=== PATIENT | male | born 1955 | race Caucasian/White ===

== ENCOUNTER 2024-02-19 07:10 | Inpatient (IN) | payer MEDICARE, OTHER, SELFPAY ==
[2024-01-22 14:11] VITALS: BMI 29.7
[2024-01-22 15:00] LABS: Hematocrit 39.1 % (39.0-52.0); Hemoglobin 13.1 g/dL (13.0-18.0); Mean Corp Hgb Conc. 33.5 g/dL (33.0-37.0); Mean Corpuscular Hgb 31.2 pg (27.0-31.0); Mean Corpuscular Volume 93.1 fL (80.0-94.0); Mean Platelet Volume 10.6 fL (7.4-10.4); Platelet Count 266 10^3/uL (130-400); Red Cell Dist. Width 13.3 % (11.5-14.5); White Blood Cell Count 4.9 10^3/uL (4.8-10.8)
[2024-01-22 15:18] LABS: ALT (SGPT) 28 U/L (0-50); AST (SGOT) 32 U/L (17-59); Albumin 4.2 g/dl (3.5-5.0); Alkaline Phosphatase 44 U/L (38-126); Blood Urea Nitrogen 20 mg/dl (9-20); Calcium 9.5 mg/dl (8.4-10.2); Carbon Dioxide 29 mmol/L (22-30); Chloride 104 mmol/L (98-107); Estimated Creatinine Clearance 76 ml/min; Glucose 104 mg/dl (70-99); Potassium 4.8 mmol/L (3.5-5.1); Sodium 143 mmol/L (135-145); Total Bilirubin 0.4 mg/dl (0.2-1.3); Total Protein 6.5 g/dl (6.3-8.2); eGFR > 60.00
[2024-01-23 09:13] LABS: Glycohemoglobin (HgbA1c) 5.5 % (4.0-5.6)
[2024-02-13 10:44] VITALS: BMI 29.7
[2024-02-19] VITALS (14 sets, daily range): BP systolic 100–128; BP diastolic 67–86; BMI 29.7
[2024-02-19] MEDS: CELEBREX 200 MG PO (07:20)
[2024-02-19] MEDS: TYLENOL 650 MG PO ×4 (07:20→20:06)
[2024-02-19] MEDS: DILAUDID 0.5 MG IV ×4 (11:29→12:19)
[2024-02-19] MEDS: ROXICODONE 5 MG PO (11:47)
--- NOTE | 2024-02-19 12:07 | SUR.PHASEI ---
Dr Goss informed of severe pain despite treatment. Benny johnson RN BSN.
--- NOTE | 2024-02-19 12:16 | SUR.PHASEI ---
Patient continues to have'severe' pain, apnea and desaturations. Dr flores informed via TT. Benny Saucedo RN BSN.
--- NOTE | 2024-02-19 13:00 | TRANSFER ---
pt arrives from PACU. AAOX3, respondeds and interacts to verbal stimuli however drowsy in nature s/p OR. vitals stable. IVF infusing into right hand without issue. pt remains on 2L NC, placed on continuous pulse ox per order. care plan
continues to be followed.
[2024-02-19] MEDS: TYLENOL PO (13:16)
[2024-02-19] MEDS: NORMOSOL-R/PLASMALYTE-A 1000 IV (13:20)
--- NOTE | 2024-02-19 14:04 | W.PN.ORTHO ---
Today's Communication / Plan
-
D/c when clinically stable.
Assessment
.
Distal Motor Intact: Yes
Dressing:
Clean, dry and intact.
Assessment:
L knee OA s/p L TKA w/ Dr James 02/19/24
- s/p R TKA, 2015, by Dr. Kumari
DVT prophylaxis - ASA, b/l venous foot pumps
GERD - add Pepcid HS
Hypercholesterolemia
Colon polyps
Diverticulosis
Remote nephrolithiasis
Lumbar DDD w/ neuropathy s/p L4-L5 hemilaminectomy, 2017, and spinal stimulator, 05/2023
HSV
Plan
.
Surgery / Date: L TKA w/ Dr James 02/19/24
DVT Prophylaxis: Aspirin
Activity:
Out of bed.
PT/OT
Discharge Plan: Home w/ Outpatient PT
Subjective
.
.:
Patient resting comfortably in bed.
Groggy from anesthesia but arousable to verbal stimuli.
L knee pain currently well tolerated.
Denies any new significant complaints.
Vital Signs and Labs
.
Vital Signs and Labs:
Lab Results
01/22/24 13:41
01/22/24 13:41
Temp Pulse Resp BP Pulse Ox
98.3 F 76 16 128/86 98
02/19/24 07:12 02/19/24 07:12 02/19/24 07:12 02/19/24 07:12 02/19/24 07:12
Physical Exam
-
HEENT: No pallor, cyanosis, or jaundice. Throat clear.
NECK: Supple. No JVD.
RESPIRATORY: Lungs clear to auscultation.
CVS: S1, S2 normal. RRR.�
ABDOMEN: Soft, non-tender. No distension.
EXTREMITIES: Strength equal, no calf pain with palpation/dorsiflexion. Calves soft.
RAILROAD CAR REPAIR SUPERVISOR: AOx3. No focal deficits. event promoter grossly intact
[2024-02-19] MEDS: ZOFRAN 4 MG IV (15:13)
--- NOTE | 2024-02-19 16:42 | OR.RPT ---
Operative Report
Operative Report
Orthopaedic Surgery Operative Note
DATE OF OPERATION: 02/19/2024
PREOPERATIVE DIAGNOSES: Osteoarthritis, left knee.
POSTOPERATIVE DIAGNOSES: Osteoarthritis, left knee.
OPERATION PERFORMED:
1) Left total knee arthroplasty (CPT 68092)
2) Intraosseous administration of analgesic (CPT 31963)
SURGEON: Pro James MD
ASSISTANTS: Tye Merritt PA-C who helped with patient and limb positioning and retraction
ANESTHESIA: Spinal by anesthesia plus intraoperative infusion of morphine into the tibial metaphysis by Dr. James
COMPLICATIONS: None.
ESTIMATED BLOOD LOSS: 20mL
DRAINS: None
TOURNIQUET TIME: 53 minutes.
IMPLANTS:
- Andrade Persona CR Femur, size 10
- Andrade Persona tibia base plate, size F
- Andrade Persona ultracongruent articular surface, 10 mm
- All-polyethylene patellar component, size 32
- DJO Kunkle bone cement
INDICATIONS: The patient presented to my office with debilitating left knee pain due to osteoarthritis. We reviewed the natural history of this problem, as well as the risks, benefits, and alternatives of various treatment options. The patient
exhausted all nonoperative treatment options and wished to proceed with knee replacement surgery. The patient understood the risks which included, but were not limited to, bleeding, infection, failure to relieve pain, more pain than preop, damage to
blood vessels and nerves, need for reoperation, mechanical failure of the implants, wound healing problems, stiffness, instability, blood clot, pulmonary embolism, myocardial infarction, pneumonia, arrhythmia, CVA, and . The patient accepted
these risks and wished to proceed. All questions were answered, and informed consent was obtained.
PROCEDURE IN DETAIL: The patient was identified in the preoperative holding area. The left knee was identified as the operative site. The patient was taken in the operating room and placed in a supine position on the operating table. Spinal
anesthesia was performed. IV antibiotics and tranexamic acid were administered. An SCD was placed on the right lower extremity. A well-padded tourniquet was placed on the proximal thigh. All bony prominences were well padded. The left lower
extremity was prepped and draped in the usual sterile fashion.
We performed a surgical time-out. An interarticular block was performed with local anesthetic with epinephrine. The limb was exsanguinated with an Esmarch bandage, then the tourniquet was inflated to 250 mmHg. I performed interosseous administration
of morphine-saline solution via a Jamshidi style intraosseous needle into the proximal medial tibial metaphysis as described by Benny Ann MD. This was performed to aid in pain control. A midline skin incision was made followed by a medial
parapatellar arthrotomy. A subperiosteal peel was performed on the medial tibia. I excised part of the infrapatellar fat pad to improve our visualization as well as tissue over anterior femur. The patella was everted and the knee was flexed. I
excised the remnants of the anterior and posterior cruciate ligaments as well as tibial and femoral osteophytes with rongeurs.
The knee was flexed, and the extramedullary tibial cutting guide was aligned. Worth was aligned at neutral, rotation was centered on the tibial tubercle, and coronal alignment was aligned with the mechanical axis of the tibia and center of the ankle
joint. The cut height was 10mm off the lateral tibia joint surface. The guide was secured into place. The MCL and LCL were protected. The tibia surface was cut. The cut surface was inspected after removal to ensure appropriate height and slope based
on the preoperative plan. The cut was checked with a drop eric. It was centered nicely at the ankle.
A drill was used to open the femoral canal. The intramedullary distal femoral cutting guide was inserted into the femur. This was set at 5 degrees +0. This was secured into place with three pins. The cut level was checked with an loly wing. The
distal femur was cut through the cutting guide. The IM guide was reinserted to double check that the level of resection was flush and in appropriate alignment.
Felix's line and the transepicondylar axis were marked on the femur. The femoral sizing guide was applied to the anterior femur. Pins were inserted, and the 4-in-1 cutting guide was applied and secured into place. The rotation was compared to
[place]'s line, the transepicondylar axis, and the neutral tibia cut and was found to be appropriate. The width was checked and found to be appropriate and lateralized on the femur. The anterior, posterior, and chamfur cuts were made. A lamina
lookback coordinator was used to open the flexion gap, and posterior osteophytes were removed with a curved osteotome. The remnant medial and lateral meniscus were also removed. I prophylactically cauterized the lateral geniculate arteries. A 10mm spacer block
was applied. The knee was balanced in flexion and was tight laterally in extension. The ITB was piecrusted, and the spacer block was reapplied. The knee was noted to be balanced medially and laterally in flexion and extension.
The tibia was exposed and sized. Rotation was set in line with the tibial tubercle and congruent with the femur. The trial was secured into place with two pins. The trial femur was impacted into place, and a trial articular surface was placed. The
knee was taken through range of motion and noted to be stable throughout the arc of motion without gaping or excess tension. In extension, a measured resection of the patella was performed. The patella was sized, and lug holes were drilled. A trial
patella component was applied, and it was noted to track centrally throughout the arc of motion without need for further releases.
The trials were removed. The tibia keel was prepared with the punch and the drill. The bone surfaces were irrigated with sterile saline and dried. The cement was mixed in a vacuum mixer. Cement gun was used to apply cement to the tibial surface and
the undersurface of the tibial implant. Cement was pressurized into the tibial canal and tibia surface. The tibial component was impacted into place. Excess cement was removed. Cement was applied to the femoral surface and the femoral component. The
femoral component was impacted into place, and excess cement removed. A trial articular surface was inserted, and the knee was extended while the cement polymerized. The tourniquet was let down, and meticulous hemostasis was achieved. Dilute
betadine was poured into the wound and allowed to soak for 3 minutes. The knee was irrigated with copious normal saline.
Once the cement was polymerized, the trial articular surface was removed. Any excess cement was removed. The knee was trialed, and the final articular surface was selected and inserted into the tibial locking mechanism. The knee was reduced. A fresh
drape was applied to the surgical field.
The arthrotomy was closed with 0-PDS. Once closed, an interarticular block was performed with local anesthetic with epi. The deep dermal layer was closed with 2-0 PDS, and the subcuticular skin was closed with 3-0 monocryl. A Dermabond Prineo
dressing was applied to the skin in full flexion. Once this was completely dry, a sterile waterproof dressing was applied.
The anesthesia team performed an adductor canal block in the OR. The patient awoke from anesthesia without any difficulties. The sponge and instrument counts were correct x2 at the end of the case.
Danny James MD
[2024-02-19] MEDS: ANCEF 5 IV (16:47)
[2024-02-19] MEDS: COMPAZINE 5 MG PO (17:00)
[2024-02-19] MEDS: ASPIRIN PO (17:03)
[2024-02-19] MEDS: DECADRON 4 MG PO (20:06)
[2024-02-19] MEDS: BACTROBAN 2% OINTMENT 1 APPLIC NASAL (20:06)
[2024-02-19] MEDS: COLACE PO (20:07)
[2024-02-19] MEDS: SENOKOT PO (20:07)
[2024-02-19] MEDS: ZYRTEC 10 MG PO (21:14)
[2024-02-19] MEDS: PEPCID 20 MG PO (21:14)
--- NOTE | 2024-02-19 22:21 | PTCARENOTE ---
2144: pt sat on side of bed prior to attempting to stand up, became nauseous and vomited small amount of clear liquid. pt stated he felt better after that and refused anti emetics. Pt was not able to ambulate d/t numbness to surgical extremity. Care
ongoing.
[2024-02-20] MEDS: ANCEF 5 IV (00:05)
[2024-02-20] MEDS: TYLENOL 650 MG PO ×3 (00:05→07:49)
[2024-02-20 03:45] VITALS: BP 103/63
--- NOTE | 2024-02-20 05:05 | W.PN.UPDATE ---
Update Note
Progress Note Update
patient c/o left calf soreness. peripheral venous US of LLE ordered. No redness noted.
--- NOTE | 2024-02-20 05:28 | PTCARENOTE ---
0445: pt c/o of left calf 'soreness to the touch'. + DP and popliteal pulse, no redness or swelling noted. TT EDITING CLERK, who ordered U/S of LLE to r/o DVT. Care ongoing.
[2024-02-20] MEDS: COLACE 100 MG PO (07:48)
[2024-02-20] MEDS: CELEBREX 200 MG PO (07:48)
[2024-02-20] MEDS: DECADRON 4 MG PO (07:49)
[2024-02-20] MEDS: ASPIRIN 325 MG PO (07:49)
[2024-02-20] MEDS: SENOKOT 17.2 MG PO (07:49)
[2024-02-20] MEDS: BACTROBAN 2% OINTMENT 1 APPLIC NASAL (07:49)
[2024-02-20 08:45] VITALS: BP 108/69
[2024-02-20] MEDS: LIORESAL 5 MG PO (09:23)
[2024-02-20 09:50] VITALS: PULSE 78; O2SAT 97
--- NOTE | 2024-02-20 10:26 | W.PN.ORTHO ---
Today's Communication / Plan
-
Await OT recs. Pt did well w/ PT today.
D/c later today if remaining clinically stable.
Assessment
.
Distal Motor Intact: Yes
Dressing:
Clean, dry and intact.
Assessment:
L knee OA s/p L TKA w/ Dr James 02/19/24
- s/p R TKA, 2016, by Dr. Kumari
DVT prophylaxis - ASA, b/l venous foot pumps
L calf soreness - LLE U/S neg for DVT - given this, likely muscle related
- Will order Baclofen prn
- Of note, his spinal stimulator has been turned off since yesterday. Pt forgot to bring in his remote to turn back on. He will have his bring in prior to d/c today. Turning his stimulator back on may help for the pain he is describing.
PONV, improved w/ anti-emetics prn - has Zofran Rx upon d/c
GERD - added Pepcid HS
Hypercholesterolemia
Colon polyps
Diverticulosis
Remote nephrolithiasis
Lumbar DDD w/ neuropathy s/p L4-L5 hemilaminectomy, 2016, and spinal stimulator, 05/2023
HSV
Plan
.
Surgery / Date: L TKA w/ Dr James 02/19/24
DVT Prophylaxis: Aspirin
Activity:
Out of bed.
PT/OT
Discharge Plan: Home w/ Outpatient PT
Subjective
.
.:
Patient examined resting in his chair.
L calf pain overnight w/ soreness to the touch.
N/V yesterday improved by POD 1.
Eager for potential d/c today.
Vital Signs and Labs
.
Vital Signs and Labs:
Lab Results
01/22/24 13:41
01/22/24 13:41
Temp Pulse Resp BP Pulse Ox
98.1 F 77 16 108/69 97
02/20/24 08:45 02/20/24 08:45 02/20/24 08:45 02/20/24 08:45 02/20/24 08:45
Non-invasive Hgb result: 11.9
Physical Exam
-
HEENT: No pallor, cyanosis, or jaundice. Throat clear.
NECK: Supple. No JVD.
RESPIRATORY: Lungs clear to auscultation.
CVS: S1, S2 normal. RRR.�
ABDOMEN: Soft, non-tender. No distension.
EXTREMITIES: Expected post-surgical L knee edema. Strength equal, no calf pain with palpation/dorsiflexion. Calves soft.
INSTRUCTOR BUS TROLLEY AND TAXI: AOx3. No focal deficits. medical staff services coordinator grossly intact
--- NOTE | 2024-02-20 10:35 | W.DS.TRANS ---
DC Summary - Inspector Glass Or Mirror
-
Discharge Instructions:
Sleep Apnea Risk Low
Discharge Diagnosis/Procedures L knee OA s/p L TKA w/ Dr James 02/19/24
Diet Regular
Activity As tolerated,With Walker
Driving Restrictions Not until seen by your Dr
Bathing Restrictions OK to Shower
Other Services PT
Wound Care Leave dressing on until seen by surgeon's office
for follow-up in 2 weeks.
Instructions:
Stand-Alone Forms: Total Hip/Knee Replacement D/C
Changes to Home Medications: Yes
Discharge Medications:
DC Medications w/original date entered in [facility]
rosuvastatin 10 mg tablet 10 mg PO QPM High Cholesterol 03/24/17
cetirizine 10 mg tablet (Zyrtec) 10 mg PO HS Allergies 02/13/24
acetaminophen 500 mg tablet (Tylenol Extra Strength) 1,000 mg (2 x 500 mg) PO Q6H #60 tabs 02/19/24
aspirin 325 mg tablet 325 mg PO DAILY #30 tabs 02/19/24
celecoxib 100 mg capsule (Celebrex) 100 mg PO BID #30 caps 02/19/24
dexamethasone 4 mg tablet 4 mg PO Q12H Anti-inflammatory #7 tabs 02/19/24
docusate sodium 100 mg capsule 100 mg PO BID #30 caps 02/19/24
glycerin 0.25 % eye drops 1 drp ophthalmic (eye) DAILYPRN PRN dry eyes #0 mL 02/19/24
mupirocin 2 % topical ointment 1 applic topical BID 02/19/24
ondansetron HCl 4 mg tablet 4 mg PO Q6H PRN nausea and vomiting #30 tabs 02/19/24
oxycodone 5 mg tablet 5 - 10 mg (1 - 2 x 5 mg) PO Q6H PRN moderate-severe pain #30 tabs 02/19/24
sennosides 8.6 mg tablet (Senna Laxative) 17.2 mg (2 x 8.6 mg) PO BID #30 tabs 02/19/24
baclofen 5 mg tablet 5 mg PO BID PRN muscle spasms #10 tabs 02/20/24
Home Medication Changes
acetaminophen 500 mg tablet (Tylenol Extra Strength) 1,000 mg (2 x 500 mg) PO Q6H #60 tabs 02/19/24
aspirin 325 mg tablet 325 mg PO DAILY #30 tabs 02/19/24
celecoxib 100 mg capsule (Celebrex) 100 mg PO BID #30 caps 02/19/24
dexamethasone 4 mg tablet 4 mg PO Q12H Anti-inflammatory #7 tabs 02/19/24
docusate sodium 100 mg capsule 100 mg PO BID #30 caps 02/19/24
ondansetron HCl 4 mg tablet 4 mg PO Q6H PRN nausea and vomiting #30 tabs 02/19/24
oxycodone 5 mg tablet 5 - 10 mg (1 - 2 x 5 mg) PO Q6H PRN moderate-severe pain #30 tabs 02/19/24
sennosides 8.6 mg tablet (Senna Laxative) 17.2 mg (2 x 8.6 mg) PO BID #30 tabs 02/19/24
baclofen 5 mg tablet 5 mg PO BID PRN muscle spasms #10 tabs 02/20/24
Pending Results: No
[2024-02-20] MEDS: TYLENOL PO (11:34)
--- NOTE | 2024-02-20 11:39 | CM ---
Met with patient and spouse at the bedside; initial assessment completed
IMM benefit explained; form signed
Pharmacy verified: [facility] @ [address] [facility], [place], [place]
Patient lives with in a multilevel home; 1 step to enter 12 steps between floors; outside/inside railings on stairs; powder room om 1st floor; 2nd floor bath has walk-in shower with grab bar, seat, elevated toilet seat w/handles
PLOF: reports he was independent with ADLs; no device w/ ambulation; drives; retired
NO SNF or Home Health utilization history
will transport home
Plan: Discharge to home; Per PT scheduled for outpatient PT
[2024-02-20 12:17] VITALS: BP 101/73
[2024-02-20 12:59] VITALS: BP 132/79
[2024-02-20 13:19] VITALS: BP 133/80
== END 2024-02-20 13:15 | disposition home or self-care (01) | DRG 470 ==
LOC: 2 SOUTH 07:10
PROVIDERS: ADMITTING PHYSICIAN Orthopaedic Surgery; FAMILY PHYSICIAN Internal Medicine; REFERRING PHYSICIAN Internal Medicine Cardiovascular Disease
PROC: 0SRD0J9 Replacement of Left Knee Joint with Synthetic Substitute, Cemented, Open Approach (ICD-10-PCS; 2024-02-19)
DX: M17.12 Unilateral primary osteoarthritis, left knee (principal); M47.896 Other spondylosis, lumbar region; Z96.82 Presence of neurostimulator; Z79.52 Long term (current) use of systemic steroids; Z79.82 Long term (current) use of aspirin; Z79.899 Other long term (current) drug therapy
CPT/HCPCS: 36415; 73560; 80053; 83036; 85027; 87070; 93971; 97110; 97116; 97162; 97166; C1713; C1776